=== PATIENT | male | born 1955 | race Caucasian/White ===

== ENCOUNTER 2023-02-21 08:02 | Day surgery (SDC) | payer BC, MEDICARE, OTHER ==
[2023-02-14 10:51] LABS: BASOPHILS % (AUTO) 1.1 % (0-1); EOSINOPHILS # (AUTO) 0.2 X10'3 (0-0.9); EOSINOPHILS % (AUTO) 4.3 % (0-6); LYMPHOCYTES # (AUTO) 1.6 X10'3 (1.1-4.8); LYMPHOCYTES % (AUTO) 39.4 % (21-51); MEAN CORPUSCULAR HEMOGLOBIN 30.6 PG (27.0-31.0); MEAN CORPUSCULAR HGB CONC 33.8 g/dL (33.0-36.5); MEAN CORPUSCULAR VOLUME 90.6 FL (78-98); MEAN PLATELET VOLUME 7.3 FL (7.4-10.4); MONOCYTES # (AUTO) 0.4 X10'3 (0-0.9); MONOCYTES % (AUTO) 9.4 % (2-12); NEUTROPHILS # (AUTO) 1.9 X10'3 (1.8-7.7); NEUTROPHILS % (AUTO) 45.8 % (42-75); PRE OP HEMATOCRIT 42.6 % (42.0-52.0); PRE OP HEMOGLOBIN 14.4 g/dL (14.0-17.9); PRE OP PLATELET COUNT 228 X10'3 (140-440); RED CELL DISTRIBUTION WIDTH 13.2 % (11.5-14.5)
[2023-02-14 11:03] LABS: PRE OP PROTIME 9.8 SECONDS (9.0-12.0)
[2023-02-14 11:06] LABS: ALBUMIN 4.3 G/DL (3.4-5.0); ALKALINE PHOSPHATASE 90 IU/L (46-116); BLOOD UREA NITROGEN 19 MG/DL (7-18); BUN/CREATININE RATIO 12.1 (10.0-20.0); CALCIUM 9.2 MG/DL (8.5-10.1); CHLORIDE 103 MMOL/L (99-107); CREATININE 1.57 MG/DL (0.60-1.10); PRE OP ALT 47 U/L (30-65); PRE OP ANION GAP 7 (8-16); PRE OP AST 28 U/L (10-37); PRE OP BILIRUB, TOTAL 0.4 MG/DL (0.0-1.0); PRE OP GLUCOSE 115 MG/DL (70-104); PRE OP POTASSIUM 4.5 MMOL/L (3.4-5.1); PRE OP SODIUM 138 MMOL/L (135-145); TOTAL CARBON DIOXIDE 27.8 MMOL/L (24-32); TOTAL PROTEIN 8.4 G/DL (6.4-8.2); eGFR 44 ML/MIN
[2023-02-14 11:29] LABS: PRE OP INR 0.9 INR
[2023-02-14 11:46] LABS: CLARITY,URINE CLEAR (Clear); COLOR,URINE YELLOW (Yellow); GLUCOSE, URINE NEGATIVE (Neg); KETONES,URINE NEGATIVE (Neg); LEUKOCYTE ESTERASE ,URINE NEGATIVE (Neg); NITRITES, URINE NEGATIVE (Neg); OCCULT BLOOD,URINE NEGATIVE (Neg); PROTEIN,URINE NEGATIVE (Neg); UROBILINOGEN,URINE 0.2 E.U/dL (0.2-1.0)
[2023-02-14 11:54] LABS: UA COLLECTION TYPE CLN CATCH MIDSTREAM
[~2023-02-21] VITALS: Ht 167.6 cm; Wt 101.8 kg
[2023-02-21] VITALS (13 sets, daily range): BP systolic 92–141; BP diastolic 63–79
[~2023-02-21 08:02] MED LIST: CHOL50004 PO; GARL1000 PO; GLUC-253 PO; OMEG-5 PO; ZINC50TA60 PO; cefazolin 2gm/D5W 100mL 100 ML IV ONE; famotidine 20mg tablet PO ONE; normal saline 1000ml 500 ML IV SCH
[2023-02-21] MEDS ORDERED: midazolam 1 mg/ML 2ml injection ONE (10:37)
[2023-02-21] MEDS ORDERED: fentaNYL/PF 50MCG/1 ML 2ML syringe ONE ×2 (10:37→11:41)
[2023-02-21] MEDS ORDERED: dexamethasone sod phosphate 10mg/ml inj ONE (10:55)
[2023-02-21] MEDS ORDERED: sevoflurane 250ml liquid IH ONE (10:55)
[2023-02-21] MEDS ORDERED: acetaminophen 1000 MG/100ml vial IV ONE (10:55)
[2023-02-21] MEDS ORDERED: morphine 4 MG/ML inj SYRINge IV PRN (11:25)
[2023-02-21] MEDS ORDERED: meperidine/PF 25mg/ml syringe IV PRN ×3 (11:25)
[2023-02-21] MEDS ORDERED: proCHLORperazine 10 MG/2 ml inj IV PRN (11:25)
[2023-02-21] MEDS ORDERED: ringers solution, lacted 1,000 ML IV SCH (11:25)
[2023-02-21] MEDS ORDERED: morphine 2 MG/ML inj. syringe IV PRN (11:25)
[2023-02-21] MEDS ORDERED: ondansetron/PF 4mg/2ml inj IV PRN (11:25)
[2023-02-21] MEDS ORDERED: epiNEPHrine 1 mg/ml inj ONE ×4 (12:52→13:30)
[2023-02-21] MEDS ORDERED: LIDOcaine 1%/PF 5ML 10 MG/ML VIAL ONE (13:30)
[2023-02-21] MEDS ORDERED: ePHEDrine 50MG/ML INJ. ONE (13:30)
[2023-02-21] MEDS ORDERED: propofol inj 20 ML IV ONE (13:30)
[2023-02-21] MEDS ORDERED: ondansetron/PF 4mg/2ml inj ONE (13:30)
[2023-02-21] MEDS ORDERED: dexamethasone sod phosphate 4mg/ml inj. ONE (13:30)
[2023-02-21] MEDS ORDERED: ROPIVAcaine 0.5% (5mg/ml) 30ml vial ONE (13:30)
[2023-02-21] MEDS ORDERED: vancomycin 1,000mg inj ONE (13:56)
--- NOTE | 2023-02-21 14:29 | NUR ---
Received from OR via , accompanied by Anesthesiologist XAVI AND OR NURSE and report given by Anesthesiolgist. PT IS QUITE DROWSY AND DIFFICULT TO AROUSE. ORAL AIRWAY IN PLACE; MONITORED BY DR. HURLEY. VSS Addendum: 02/21/23 at 1523 by Nannette Humphries RN Amended: Links added.
[2023-02-21] MEDS ORDERED: meperidine/PF 25mg/ml syringe ONE (15:08)
--- NOTE | 2023-02-21 16:39 | NUR ---
I HAVE REVIEWED D/C INSTRUCTIONS WITH PATIENT and they have verbalized understanding patient d/c home with all belongings and family gave transport home. Addendum: 02/21/23 at 1648 by Nannette Humphries RN Amended: Links added.
== END 2023-02-21 16:39 | disposition home or self-care (01) ==
LOC: PAS 08:02
PROVIDERS: ATTEND Specialist
DX: M75.112 Incomplete rotator cuff tear or rupture of left shoulder, not specified as traumatic (principal); M19.012 Primary osteoarthritis, left shoulder; M75.42 Impingement syndrome of left shoulder; M65.812 Other synovitis and tenosynovitis, left shoulder; M17.11 Unilateral primary osteoarthritis, right knee; J45.909 Unspecified asthma, uncomplicated; K21.9 Gastro-esophageal reflux disease without esophagitis; E66.9 Obesity, unspecified; Z68.36 Body mass index [BMI] 36.0-36.9, adult; G89.18 Other acute postprocedural pain; Z98.890 Other specified postprocedural states; Z87.442 Personal history of urinary calculi; Z79.899 Other long term (current) drug therapy; Z79.01 Long term (current) use of anticoagulants
CPT/HCPCS: 23412; 29824; 29826; 36415; 64415; 71046; 80053; 81003; 82948; 85025; 85610; 85730; 86885; 86900; 86901; A6222; C1713; J0131; J0171; J0690; J1100; J2175; J2250; J2405; J2704; J2795; J3010; J3370; J3490; J7030; J7120; Z7506; Z7508; Z7512; A4565; A4618; A6253; A6449; A7000